=== PATIENT | male | born 1980 | race Caucasian/White ===

== ENCOUNTER 2018-09-16 19:23 | Observation (INO) | payer BC ==
[2018-09-16] MEDS: KETOROLAC 30 MG INJ IV (23:07)
[2018-09-16 23:32] LABS: ADD MAN DIFF? NO
[2018-09-16 23:34] LABS: WHITE BLOOD COUNT 9.1 10^3/ul (4.8-10.8)
[2018-09-16 23:34] LABS: BASOPHILS % 0.2 % (0.0-2.0); EOSINOPHILS % 0.2 % (0.0-7.0); HEMATOCRIT 40.8 % (42.0-52.0); HEMOGLOBIN 13.9 g/dl (14.0-18.0); LYMPHOCYTES # 1.1 10^3/ul (0.8-2.9); LYMPHOCYTES % 11.8 % (15.0-51.0); MEAN CORPUSCULAR HEMOGLOBIN 29.8 pg (29.0-33.0); MEAN CORPUSCULAR HGB CONC 34.1 g/dl (32.0-37.0); MEAN CORPUSCULAR VOLUME 87.6 fl (82.0-101.0); MEAN PLATELET VOLUME 10.1 fl (7.4-10.4); MONOCYTE # 1.1 10^3/ul (0.3-0.9); MONOCYTES % 12.2 % (0.0-11.0); NEUTROPHIL # 6.9 10^3/ul (1.6-7.5); NEUTROPHILS % 75.2 % (39.0-77.0); PLATELET COUNT 225 10^3/UL (140-415); RED BLOOD COUNT 4.66 10^6/ul (4.70-6.10); RED CELL DISTRIBUTION WIDTH 12.9 % (11.5-14.5)
[2018-09-16 23:40] LABS: ALANINE AMINOTRANSFERASE 60 IU/L (13-69); ALBUMIN 4.6 g/dl (3.3-4.9); ALBUMIN/GLOBULIN RATIO 1.35; ALKALINE PHOSPHATASE 65 IU/L (42-121); ANION GAP 12 (5-13); ASPARTATE AMINO TRANSFERASE 44 IU/L (15-46); BILIRUBIN,INDIRECT 0.7 mg/dl (0-1.1); BILIRUBIN,TOTAL 0.7 mg/dl (0.2-1.3); BLOOD UREA NITROGEN 14 mg/dl (7-20); CALCIUM 9.2 mg/dl (8.4-10.2); CARBON DIOXIDE 25 mmol/L (21-31); CHLORIDE 98 mmol/L (97-110); Estimated GFR > 60 mL/min (>60); GLUCOSE 129 mg/dl (70-220); LIPASE 29 U/L (23-300); POTASSIUM 4.3 mmol/L (3.5-5.1); SODIUM 135 mmol/L (135-144)
[2018-09-16 23:52] LABS: TROPONIN-I < 0.012 ng/ml (0.000-0.120)
[2018-09-17 00:11] LABS: D-DIMER 694.51 ng/ml (<460)
[2018-09-17 01:24] LABS: ERYTHROCYTE SEDIMENTATION RATE 11 mm/Hr (0-15)
[2018-09-17] MEDS: IBUPROFEN 600 MG TAB PO (01:36)
[2018-09-17] MEDS: CEFTRIAXONE 1 GM/50 ML (PMX) 50 ML IVPB (01:37)
[2018-09-17] MEDS ORDERED: NITROGLYCERIN (SL) 0.4 MG TAB SL (02:30)
[2018-09-17] MEDS ORDERED: NACL 0.9% 3 ML SYG IV (02:30)
[2018-09-17] MEDS: IBUPROFEN 200 MG TAB PO ×4 (02:30→20:54)
[2018-09-17] MEDS ORDERED: ONDANSETRON 4 MG INJ IV (02:30)
[2018-09-17] MEDS ORDERED: ALBUTEROL/IPRATROPIUM (NEB) 3 ML AMP HHN (02:30)
[2018-09-17] MEDS ORDERED: ACETAMINOPHEN 325 MG TAB PO (02:30)
[2018-09-17] MEDS: AZITHROMYCIN 500MG/NS (PMX) 250 ML IVPB (02:47)
[2018-09-17] MEDS: IOHEXOL 300MG/ML 150 ML BTL (03:27)
[2018-09-17] MEDS: SOD CHLORIDE 0.9% 100 ML (03:27)
[2018-09-17] MEDS: HYDROCODONE/APAP (5/325) TAB PO ×2 (04:28→11:06)
[2018-09-17 07:38] LABS: ADD MAN DIFF? NO
[2018-09-17 07:42] LABS: BASOPHILS % 0.2 % (0.0-2.0); EOSINOPHILS % 0.3 % (0.0-7.0); HEMATOCRIT 36.9 % (42.0-52.0); HEMOGLOBIN 12.5 g/dl (14.0-18.0); LYMPHOCYTES # 1.4 10^3/ul (0.8-2.9); LYMPHOCYTES % 24.4 % (15.0-51.0); MEAN CORPUSCULAR HEMOGLOBIN 29.3 pg (29.0-33.0); MEAN CORPUSCULAR HGB CONC 33.9 g/dl (32.0-37.0); MEAN CORPUSCULAR VOLUME 86.6 fl (82.0-101.0); MONOCYTE # 1.1 10^3/ul (0.3-0.9); MONOCYTES % 19.7 % (0.0-11.0); NEUTROPHIL # 3.2 10^3/ul (1.6-7.5); NEUTROPHILS % 55.2 % (39.0-77.0); PLATELET COUNT 169 10^3/UL (140-415); RED BLOOD COUNT 4.26 10^6/ul (4.70-6.10); RED CELL DISTRIBUTION WIDTH 13.2 % (11.5-14.5)
[2018-09-17 07:42] LABS: WHITE BLOOD COUNT 5.7 10^3/ul (4.8-10.8)
[2018-09-17 08:14] LABS: ANION GAP 10 (5-13); CARBON DIOXIDE 25 mmol/L (21-31); CHLORIDE 102 mmol/L (97-110); GLUCOSE 112 mg/dl (70-220); SODIUM 137 mmol/L (135-144)
[2018-09-17 08:15] LABS: ALANINE AMINOTRANSFERASE 50 IU/L (13-69); ALBUMIN 3.8 g/dl (3.3-4.9); ALBUMIN/GLOBULIN RATIO 1.35; ALKALINE PHOSPHATASE 50 IU/L (42-121); ASPARTATE AMINO TRANSFERASE 38 IU/L (15-46); BLOOD UREA NITROGEN 11 mg/dl (7-20); CALCIUM 8.7 mg/dl (8.4-10.2); CHOL/HDL RATIO 3.4 RATIO; CHOLESTEROL 102 mg/dl (100-200); CREATININE 0.63 mg/dl (0.61-1.24); Estimated GFR > 60 mL/min (>60); HDL CHOLESTEROL 30 mg/dl (27-67); LDL CHOLESTEROL,CALCULATED 60 mg/dl; TOTAL PROTEIN 6.6 g/dl (6.1-8.1); TRIGLYCERIDES 60 mg/dl (0-149)
[2018-09-17 08:21] LABS: CK-MB 1.77 ng/ml (0.0-2.4); TROPONIN-I < 0.012 ng/ml (0.000-0.120)
[2018-09-17 08:22] LABS: CK INDEX 1.6; CREATINE KINASE 111 IU/L (23-200)
[2018-09-17 08:26] LABS: HEMOGLOBIN A1C 5.8 % (0-5.9)
[2018-09-17] MEDS: ASPIRIN 81 MG TAB PO (08:31)
[2018-09-17] MEDS: HEPARIN 5,000 UNIT/1 ML VIAL SC ×2 (08:38→20:58)
[2018-09-17 08:40] LABS: THYROID STIMULATING HORMONE 0.637 MIU/L (0.465-4.680)
[2018-09-17] MEDS: COLCHICINE 0.6 MG TAB PO ×2 (10:49→20:54)
[2018-09-17] MEDS: METHYLPREDNISOLONE 125 MG INJ IV (10:49)
[2018-09-17] MEDS: LEVOFLOXACIN 500MG/D5W (PMX) 100 ML IVPB (10:50)
[2018-09-17 12:10] LABS: CREATINE KINASE 84 IU/L (23-200)
[2018-09-17 12:21] LABS: CK INDEX 1.5; CK-MB 1.28 ng/ml (0.0-2.4); TROPONIN-I < 0.012 ng/ml (0.000-0.120)
[2018-09-18] MEDS: IBUPROFEN 200 MG TAB PO ×2 (02:30→08:42)
[2018-09-18 07:00] LABS: WHITE BLOOD COUNT 11.2 10^3/ul (4.8-10.8)
[2018-09-18 07:00] LABS: HEMATOCRIT 37.8 % (42.0-52.0); HEMOGLOBIN 12.4 g/dl (14.0-18.0); MEAN CORPUSCULAR HEMOGLOBIN 29.1 pg (29.0-33.0); MEAN CORPUSCULAR HGB CONC 32.8 g/dl (32.0-37.0); MEAN CORPUSCULAR VOLUME 88.7 fl (82.0-101.0); MEAN PLATELET VOLUME 9.9 fl (7.4-10.4); PLATELET COUNT 195 10^3/UL (140-415); POSITIVE DIFF @See below; RED BLOOD COUNT 4.26 10^6/ul (4.70-6.10); RED CELL DISTRIBUTION WIDTH 13.1 % (11.5-14.5)
[2018-09-18 07:04] LABS: ADD MAN DIFF? YES
[2018-09-18 07:17] LABS: ANION GAP 6 (5-13); BLOOD UREA NITROGEN 13 mg/dl (7-20); CALCIUM 9.1 mg/dl (8.4-10.2); CARBON DIOXIDE 29 mmol/L (21-31); CHLORIDE 105 mmol/L (97-110); CREATININE 0.64 mg/dl (0.61-1.24); Estimated GFR > 60 mL/min (>60); GLUCOSE 114 mg/dl (70-220); MAGNESIUM 2.3 mg/dl (1.7-2.5); PHOSPHORUS 3.4 mg/dl (2.5-4.9); POTASSIUM 4.2 mmol/L (3.5-5.1); SODIUM 140 mmol/L (135-144)
[2018-09-18 08:17] LABS: ANISOCYTOSIS 1+ (0-0); BAND NEUTROPHILS #M 0.3 10^3/ul (0.0-0.6); BAND NEUTROPHILS % (M) 3 % (0-4); BURR CELLS 1+ (0-0); LYMPHOCYTES #M 2.4 10^3/ul (0.8-2.9); LYMPHOCYTES % (M) 22 % (15-51); MICROCYTOSIS 1+ (0-0); MONOCYTE #M 1.1 10^3/ul (0.3-0.9); MONOCYTES % (M) 10 % (0-11); PLATELET ESTIMATE NORMAL; POIKILOCYTOSIS 1+ (0-0); POLYCHROMASIA 3+ (0-0); REACTIVE LYMPHOCYTES #M 0.4 10^3/ul (0.0-0.0); REACTIVE LYMPHOCYTES% (M) 4 % (0-0); SEG NEUT #M 6.9 10^3/ul (1.6-7.5); SEGMENTED NEUTROPHILS (M) % 61 % (39-77); SMUDGE%M 1 % (0-0); TARGET CELLS 1+ (0-0)
[2018-09-18] MEDS: COLCHICINE 0.6 MG TAB PO (08:42)
[2018-09-18] MEDS: ASPIRIN 81 MG TAB PO (08:42)
[2018-09-18] MEDS: METHYLPREDNISOLONE 125 MG INJ IV (08:42)
[2018-09-18] MEDS: LEVOFLOXACIN 500MG/D5W (PMX) 100 ML IVPB (08:42)
[2018-09-18] MEDS: HEPARIN 5,000 UNIT/1 ML VIAL SC (08:50)
== END 2018-09-18 12:15 | disposition home or self-care (01) ==
LOC: E/R 19:23 → TEL 09-17 01:29
DX: I31.9 Disease of pericardium, unspecified (principal); I31.3 Pericardial effusion (noninflammatory); R19.7 Diarrhea, unspecified
CPT/HCPCS: 36415; 71045; 71275; 76705; 80048; 80053; 80061; 82550; 82553; 83036; 83690; 83735; 84100; 84443; 84484; 85025; 85378; 85651; 87040-91; 93005; 93306; 96374; 99285-25; G0378

== ENCOUNTER 2018-10-07 23:18 | Emergency (ER) | payer BC ==
[2018-10-08 00:09] LABS: ADD MAN DIFF? NO
[2018-10-08] MEDS: KETOROLAC 30 MG INJ IV (00:10)
[2018-10-08] MEDS: morphine 4 MG/ML VIAL IV (00:10)
[2018-10-08] MEDS: SOD CHLORIDE 0.9% 1,000 ML IV (00:10)
[2018-10-08] MEDS: ONDANSETRON 4 MG INJ IV (00:10)
[2018-10-08 00:12] LABS: BASOPHILS % 0.5 % (0.0-2.0); EOSINOPHILS # 0.2 10^3/ul (0.0-0.5); EOSINOPHILS % 2.9 % (0.0-7.0); HEMATOCRIT 35.9 % (42.0-52.0); HEMOGLOBIN 11.6 g/dl (14.0-18.0); LYMPHOCYTES # 1.6 10^3/ul (0.8-2.9); LYMPHOCYTES % 28.1 % (15.0-51.0); MEAN CORPUSCULAR HEMOGLOBIN 28.7 pg (29.0-33.0); MEAN CORPUSCULAR HGB CONC 32.3 g/dl (32.0-37.0); MEAN CORPUSCULAR VOLUME 88.9 fl (82.0-101.0); MEAN PLATELET VOLUME 8.7 fl (7.4-10.4); MONOCYTE # 0.8 10^3/ul (0.3-0.9); MONOCYTES % 13.7 % (0.0-11.0); NEUTROPHILS % 54.6 % (39.0-77.0); PLATELET COUNT 267 10^3/UL (140-415); RED BLOOD COUNT 4.04 10^6/ul (4.70-6.10); RED CELL DISTRIBUTION WIDTH 12.5 % (11.5-14.5)
[2018-10-08 00:12] LABS: WHITE BLOOD COUNT 5.6 10^3/ul (4.8-10.8)
[2018-10-08 00:31] LABS: ANION GAP 9 (5-13); BLOOD UREA NITROGEN 15 mg/dl (7-20); CALCIUM 9.2 mg/dl (8.4-10.2); CARBON DIOXIDE 26 mmol/L (21-31); CHLORIDE 105 mmol/L (97-110); CREATININE 0.63 mg/dl (0.61-1.24); Estimated GFR > 60 mL/min (>60); GLUCOSE 101 mg/dl (70-220); POTASSIUM 4.1 mmol/L (3.5-5.1); SODIUM 140 mmol/L (135-144)
[2018-10-08 00:43] LABS: INR 1.12; PROTIME 14.5 Sec (11.9-14.9); PT RATIO 1.1; TROPONIN-I < 0.012 ng/ml (0.000-0.120)
[2018-10-08 00:44] LABS: PARTIAL THROMBOPLASTIN TIME 26.8 Sec (23.0-35.0)
== END 2018-10-08 02:38 | disposition home or self-care (01) ==
LOC: E/R 10-08 02:38
DX: I30.0 Acute nonspecific idiopathic pericarditis (principal); F17.210 Nicotine dependence, cigarettes, uncomplicated
CPT/HCPCS: 36415; 71045; 80048; 84484; 85025; 85610; 85730; 93005; 96361; 96374; 96375; 99285-25